=== PATIENT | male | born 1975 | race Caucasian/White ===

== ENCOUNTER 2020-01-04 15:20 | Emergency (ER) | payer SELFPAY ==
--- NOTE | 2020-01-04 15:27 | PDOC ---
Rapid Medical Evaluation Chief Complaint: Bone Injury Time Seen by Provider: 01/04/20 15:24 Medical Evaluation: 01/04/20 15:25 CC: right arm pain s/p fall PE: right upper arm pain with ecchymosis over biceps. Biceps shortened and spasms present. Orders: xray Patient will proceed to ED for evaluation. Discharge Disposition - Diagnosis Arm pain - Referrals - Patient Instructions - Post Discharge Activity
[2020-01-04 15:29] VITALS: BP 134/82; PULSE 98; TEMP 98.4; BMI 23.9
--- NOTE | 2020-01-04 15:52 | PDOC ---
History of Present Illness - General Chief Complaint: Bone Injury Stated Complaint: FALL/ RT. ARM INJURY Time Seen by Provider: 01/04/20 15:24 History Source: Patient - History of Present Illness Initial Comments: 01/04/20 15:47 Patient is a 44-year-old male who presents to the ED after having a fall while walking in the street. He states he tripped and landed on an outstretched arm. He presents today with significant pain to his right upper arm. He denies any past medical history or allergies to medications. He was splinted by EMS and brought to the ED for evaluation. He denies hitting his head or any LOC. Past History - Past Medical History Allergies/Adverse Reactions: Allergies Allergy/AdvReac Type Severity Reaction Status Date / Time No Known Allergies Allergy Verified 01/04/20 15:28 COPD: No - Psycho Social/Smoking Cessation Hx Smoking History: Former smoker Have you smoked in the past 12 months: No Information on smoking cessation initiated: No Hx Alcohol Use: No Drug/Substance Use Hx: No Review of Systems - Review of Systems Comments:: 01/04/20 15:48 - Review of Systems Able to Perform ROS?: Yes Constitutional: No: Fever, Chills, Loss of Appetite, Night Sweats, Weakness Respiratory: No: Cough, Shortness of Breath, Wheezing, Sputum Production Cardiac (ROS): No: Chest Pain, Chest Tightness, Palpitations, Irregular Heart Beat, Edema ABD/GI: No: Nausea, Vomiting, Abdominal Pain, Diarrhea Musculoskeletal: No: Back Pain, Joint Pain, Muscle Weakness, Neck Pain; positive : right bicep pain Integumentary: No: Lesions, Rash Neurological: No: Headache, Numbness, Tingling, Weakness, Speech Difficulties *Physical Exam - Vital Signs Last Vital Signs Temp Pulse Resp BP Pulse Ox 98.4 F 98 H 19 134/82 99 01/04/20 15:26 01/04/20 15:26 01/04/20 15:26 01/04/20 15:26 01/04/20 15:26 - Physical Exam 01/04/20 15:48 - Physical Exam General Appearance: Nourished, Appropriately Dressed, No Distress Respiratory/Chest: Lungs Clear, Normal Breath Sounds. No Respiratory Distress, No Accessory Muscle Use Cardiovascular: Regular Rhythm, Regular Rate, S1, S2 Gastrointestinal/Abdominal: Normal Bowel Sounds, Soft. Non-tender, No Guarding , No Rebound, No Rigidity Musculoskeletal: Normal Inspection. Obvious Jonathan muscle to the right bicep with ecchymosis appreciated. Significant tenderness to palpation. No tenderness to the shoulder or the elbow. Full range of motion of the elbow. Sensation intact distally. Brisk capillary refill distally. Extremity: Normal Capillary Refill Integumentary: Normal Color, Dry. No Rash Neurologic: concrete inspector II-XII NML intact, Fully Oriented, Alert, Normal Mood/Affect, Normal Response ED Treatment Course - ADDITIONAL ORDERS Additional order review: 01/04/20 16:[address] head is negative for acute pathology. His humerus x-ray does not show any acute fractures. The patient will be referred to orthopedics because he likely will need repair of his biceps tendon tear. - RADIOLOGY Radiology Studies Ordered: Category Date Time Status HUMERUS-RIGHT [RAD] Stat Radiology 01/04/20 15:45 Ordered Medical Decision Making - Medical Decision Making 01/04/20 15:49 Assessment: Patient is a 44-year-old male with a right proximal biceps tear. Plan: -Right humerus x-ray to rule out underlying fracture -Sling placed in the ED -EtOH on breath, will hold on any pain medications. -CT head secondary to EtOH on breath -Will reassess 01/04/20 16:49 The patient has been made aware that the CT head and his x-ray were both negative for acute pathology. The patient has been made aware that he must follow-up with orthopedics for possible repair of his biceps tendon. A referral has been given to him. He should continue to wear the sling but take it off several times daily for elbow range of motion. He understands and agrees with this treatment plan and the patient is stable for discharge. Discharge - Discharge Information Problems reviewed: Yes Clinical Impression/Diagnosis: Arm pain Biceps tendon rupture, proximal Qualifiers: Encounter type: initial encounter Laterality: right Qualified Code(s): S46.211A - Strain of muscle, fascia and tendon of other parts of biceps, right arm, initial encounter Condition: Stable Disposition: HOME - Follow up/Referral Referrals: Herb Tripathi MD [Staff Physician] - 1 week () - Patient Discharge Instructions Patient Printed Discharge Instructions: DI for Arm Pain Additional Instructions: You must follow up with orthopaedics within 1 week for repeat evaluation. Be sure to take the sling off several times a day to do gentle elbow range of motion exercises. Your tendon may likely require surgical repair. Take Tylenol or Motrin for the pain. Print Language: NAURUAN - Post Discharge Activity Work/Back to School Note: Back to Work
== END 2020-01-04 17:04 | disposition home or self-care (01) ==
LOC: JERFT 15:20
DX: S46.211A Strain of muscle, fascia and tendon of other parts of biceps, right arm, initial encounter (principal); W18.39XA Other fall on same level, initial encounter; Y93.89 Activity, other specified; Y92.414 Local residential or business street as the place of occurrence of the external cause; Y99.8 Other external cause status; F10.10 Alcohol abuse, uncomplicated; Z72.89 Other problems related to lifestyle
CPT/HCPCS: 70450-TC; 73060-TC-RT-FY; 99284-25